=== PATIENT | male | born 1935 | race Caucasian/White ===

== ENCOUNTER 2018-06-02 20:21 | Inpatient (IN) | payer MEDICARE ==
[2018-06-02] MEDS ORDERED: NS 0.9% 1000 ML* 1,000 ML IV ONE (20:32)
--- NOTE | 2018-06-02 20:34 | ED ---
Neurological HPI - HPI Summary HPI Summary: This is johnnie Mejias documenting for attending Stan Frias MD. KERRY DOWLING CALLED AT 2030. Called [facility] for tele stroke at 2031. This patient is an 82 year old M BIBA to ED with a chief complaint of stroke since 1800 today. His daughter called the ambulance. The patient was sitting on the porch during onset. and daughter report they looked at him and he seemed out of touch. His R jaw and R eye were drooping. The patient tried to stand up but was unable to. reports he had no strength in R arm and R leg. They then sat him down and said he had slurred speech. They were able to walk him to the bathroom with their help. Usually, the patient can ambulate without a walker or any help. Daughter reports from 1799 to now, only his face has improved. In the room, his reports his face looks normal now. The patient rates the pain 0/10 in severity. Symptoms aggravated by nothing. Symptoms alleviated by nothing. The patient is retired. 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, Still Present Timing: Sudden Onset Current Severity: None Neurological Deficit Location: Facial - R jaw, R eye, and slurred speech, RUE, RLE Pain Intensity: 0 Pain Scale Used: 0-10 Numeric Aggravating: Nothing Alleviating: Nothing Associated Signs and Symptoms: Positive: Weakness - in R arm and R leg; facial droop on R eye, slurred speech - Allergy/Home Medications Allergies/Adverse Reactions: Allergies Allergy/AdvReac Type Severity Reaction Status Date / Time Penicillins Allergy Unknown Verified 06/02/18 20:44 Reaction Details Home Medications: Home Medications Acetaminophen [Acetaminophen Extra Strength] 1,000 mg PO Q6HR PRN 06/02/18 [ History Confirmed 06/02/18] Aspirin EC TAB* [Ecotrin EC Low Dose 81 MG*] 81 mg PO DAILY 06/02/18 [History Confirmed 06/02/18] Carvedilol TAB* [Coreg TAB*] 6.25 mg PO BID 06/02/18 [History Confirmed 06/02/18 ] Cholecalciferol TAB* [Vitamin D TAB*] 1,000 unit PO DAILY 06/02/18 [History Confirmed 06/02/18] Cyanocobalamin INJ * [Vitamin B12 INJ *] 1,000 mcg IM .EVERY OTHER MONTH [History Confirmed 06/02/18] Gabapentin CAP(*) [Neurontin 300 CAP(*)] 300 mg PO BEDTIME 06/02/18 [History Confirmed 06/02/18] Glucosamine Sulfate Dipot Chlr [Glucosamine] 1,500 mg PO DAILY 06/02/18 [ History Confirmed 06/02/18] Losartan TAB* [Cozaar TAB*] 100 mg PO DAILY 06/02/18 [History Confirmed 06/02/18 ] Lutein 20 mg PO DAILY 06/02/18 [History Confirmed 06/02/18] Kinsey-3 Fatty Acids [Kinsey-3] 1,000 mg PO DAILY 06/02/18 [History Confirmed ] traMADol TAB* [Ultram*] 50 mg PO Q6HR PRN 06/02/18 [History Confirmed 06/02/18] PMH/Surg Hx/FS Hx/Imm Hx Endocrine/Hematology History: Denies: Hx Diabetes Cardiovascular History: Reports: Hx Hypertension, Other Cardiovascular Problems/ Disorders - heart valve - Family History Known Family History: Positive: Cardiac Disease, Hypertension - Social History Alcohol Use: Occasionally Substance Use Type: Reports: None Smoking Status (MU): Former Smoker Review of Systems Negative: Fever Neurological: Other - R jaw and R eye droop; patient seemed out of touch; currently his face has improved according to Positive: Weakness - in R arm and R leg, Slurred Speech All Other Systems Reviewed And Are Negative: Yes Physical Exam - Summary Physical Exam Summary: VITAL SIGNS: Reviewed. GENERAL: Patient is a well-developed and nourished MALE who is lying comfortable in the stretcher. Patient is not in any acute respiratory distress. HEAD AND FACE: No signs of trauma. No ecchymosis, hematomas or skull depressions. No sinus tenderness. EYES: PERRLA, EOMI x 2, No injected conjunctiva, no nystagmus. EARS: Hearing grossly intact. Ear canals and tympanic membranes are within normal limits. MOUTH: Oropharynx within normal limits. NECK: Supple, trachea is midline, no adenopathy, no JVD, no carotid bruit, no c- spine tenderness, neck with full ROM. CHEST: Symmetric, no tenderness at palpation LUNGS: Clear to auscultation bilaterally. No wheezing or crackles. CVS: Regular rate and rhythm, S1 and S2 present, no murmurs or gallops appreciated. ABDOMEN: Soft, non-tender. No signs of distention. No rebound no guarding, and no masses palpated. Bowel sounds are normal. EXTREMITIES: FROM in all major joints, no edema, no cyanosis or clubbing. NEURO: Alert and oriented x 3. According to family and EMS, the patient was having R facial droop at home and in the ambulance. Improved now and resolved by the time he arrived to the ED. SKIN: Dry and warm Triage Information Reviewed: Yes Vital Signs On Initial Exam: Initial Vitals Resp BP 27 130/83 06/02/18 20:25 06/02/18 20:25 Vital Signs Reviewed: Yes Diagnostics - Laboratory Result Diagrams: 06/02/18 20:43 06/02/18 20:43 Lab Statement: Any lab studies that have been ordered have been reviewed, and results considered in the medical decision making process. - Radiology CXR Radiology Interpretation Completed By: ED Physician - No acute processes. Pending radiologist official interpretation. - CT Brain CT CT Interpretation Completed By: Radiologist - 1. No acute intracranial abnormality. ASPECT = 10 2. Mild chronic small vessel ischemic disease. ED physician has reviewed this radiology report. - EKG 2042 Cardiac Rate: NL - 84 BPM EKG Rhythm: Sinus Rhythm EKG Interpretation: first degree aV block, PVCs NIH Scale - NIH Scale Level of Consciousness: Alert/Keenly Responsive Ask Patient the Month and His/Her Age: Both Correct Ask Pt to Open/Close Eyes and Acting Teacher/Release Non-Paretic Hand: Both Correctly Best Gaze (Only Horizontal Eye Movement): Normal Visual Field Testing: No Visual Loss Facial Paresis-Pt to Smile & Close Eyes or Grimace Symmetry: Normal/Symmetrical Motor Function - Right Arm: Drifts LT 10 seconds Motor Function - Left Arm: No Drift-Holds 10 Seconds Motor Function - Right Leg: No Drift-Holds 10 Seconds Motor Function - Left Leg: No Drift-Holds 10 Seconds Limb Ataxia-Must be out of Proportion to Weakness Present: Absent Sensory (Use Pinprick to Test Arms/Legs/Trunk/Face): Normal Best Language (Describe Picture, Name Items): Some Loss Dysarthria (Read Several Words): Slurs Some Words Extinction and Inattention: No Abnormality Total Score: 3 NIH Stroke Scale Comment: Patient was unable to stand up even with assistance. Re-Evaluation - Re-Evaluation First Eval Re-Evaluation Time: 11:02 Comment: Discussed with the patient and his family about plan for further workup and about consult with [facility]. Course/Dx - Course Assessment/Plan: This patient is an 82 yo with PHx of HTN. She was brought to the ED by EMS. According to family, the patient developed R arm weakness, facial droop, and slurred speech. On exam, she had dysarthria, aphasia, RUE drift, and he was not able to ambulate. I consulted Dr. Curry at [facility] who recommended TPA. TPA was received in the ED. The patient was admitted to the ICU by Dr. Carrillo with dx of acute CVA. - Differential Dx Differential Diagnoses Neuro: Positive: Other - acute CVA - Diagnoses Provider Diagnoses: Acute CVA (cerebrovascular accident) - Physician Notifications Time Discussed With Above Provider: 20:55 Instructed by Provider To: Other - Consulted [facility] at 2054 to discuss the patient's case. Consulted Dr. Curry (stroke doctor) at [facility] at 2107 who recommended to get a TPA. TPA was ordered at 2109. Consulted Dr. Carrillo at 2131 who accepted the patient for admission. - Critical Care Time Critical Care Time: 30-74 min - 45 minutes Discharge - Sign-Out/Discharge Documenting (check all that apply): Patient Departure - Discharge Plan Condition: Stable Disposition: [facility]MITTED TO [facility]
[2018-06-02 20:54] LABS: ABS Basophils 0.1 10^3/ul (0-0.2); ABS Eosinophils 0.1 10^3/ul (0-0.6); ABS Lymphocytes 1.7 10^3/ul (1.0-4.8); ABS Monocytes 1.2 10^3/ul (0-0.8); ABS Nucleated RBC 0 10^3/ul; Hematocrit 37 % (42-52); Hemoglobin 12.8 g/dl (14.0-18.0); Lymphocyte % 14.4 % (25-47); Mean Corpuscular HGB Conc 34 g/dl (31-36); Mean Corpuscular Hemoglobin 32 pg (27-31); Mean Corpuscular Volume 93 fL (80-94); Mean Platelet Volume 6.9 um3 (7.4-10.4); Nucleated Red Blood Cells % 0; Platelet Count 190 10^3/ul (150-450); Red Blood Count 4.02 10^6/ul (4.00-5.40); Red Cell Distribution Width 13 % (10.5-15); White Blood Count 12.1 10^3/ul (3.5-10.8)
[2018-06-02 21:03] LABS: INR 1.02 (0.77-1.02)
[2018-06-02] MEDS ORDERED: ALTEPLASE IV ONE (21:08)
[2018-06-02] MEDS ORDERED: Alteplase* 100 MG in PREMIX* 100 ML IV ONE (21:08)
[2018-06-02] MEDS ORDERED: Alteplase* 100 MG VIAL ONE (21:10)
[2018-06-02 21:11] LABS: EGFR Non-African American 37.9 (>60)
[2018-06-02] MEDS ORDERED: Iodixanol* (CONTRAST) 320 MG/ML 100 ML SDV IV ONE (21:41)
[2018-06-02] MEDS ORDERED: Ondansetron INJ* 2 MG/ML VIAL IV PRN (23:25)
[2018-06-03 00:59] LABS: Urine Appearance Cloudy; Urine Blood 1+ (Negative); Urine Color Yellow; Urine Ketones Trace (Negative); Urine Protein 1+(30 mg/dL) (Negative); Urine Red Blood Cell 1+(3-5/hpf) (Absent); Urine Specific Gravity 1.034 (1.010-1.030); Urine Urobilinogen Negative (Negative); Urine White Blood Cell Trace(0-5/hpf) (Absent)
[2018-06-03] MEDS: cefTRIAXone VIAL(*) 1,000 MG in NS 0.9% 50 ML* 50 ML IVPB SCH (01:53)
--- NOTE | 2018-06-03 05:19 | HP ---
CC: Dr. Krishnamurthy, [place], phone number [phone], FAX [phone]; Dr. Altamirano; Dr. Ortega, phone number [phone], FAX [phone] * HISTORY AND PHYSICAL: DATE OF ADMISSION: 06/02/18 PRIMARY CARE PROVIDER: Dr. Krishnamurthy from [place], phone number is [phone] ATTENDING PHYSICIAN WHILE IN THE HOSPITAL: Dr. Geovany Carrillo * (report dictated by Rhina Taylor NP). CONSULTING NEUROLOGIST: Dr. Altamirano. CHIEF COMPLAINT: 1. Facial droop. 2. Right-sided weakness. 3. Difficulty with speech. HISTORY OF PRESENT ILLNESS: Mr. Fletcher is an 82-year-old male patient. He has a history of hypertension, hyperlipidemia, and valvular heart disease. He has had a bovine aortic valve replacement done about 3 years ago. He is presenting today. Around 1800, he developed trouble with speech. His noted that he could not stand on his right side, it was weak at the right arm and right leg. He was noted to have a facial droop and trouble with speaking. The patient's was concerned. They called 911 and brought the patient immediately. While he was here, he was still having difficulty with his speech and the weakness to right side. He underwent telestroke. TPA was advised and this was given. The patient had an improvement with this, but there was concern for possible stroke. We were asked to evaluate for admission. The patient does state that the last couple of nights he has had episodes of having some chills, but no headache, no neck pain. No fevers reported. No chest pain or shortness of breath. No abdominal discomfort. Denies having any palpitations, any nausea or vomiting. He does state that he had significant weakness on the right side and right-sided facial droop and he had difficulty with his speech. Because of this, we were asked to evaluate for admission. PAST MEDICAL HISTORY: Significant for: 1. Hypertension. 2. Hyperlipidemia. 3. Aortic valve disease. PAST SURGICAL HISTORY: 1. He has had an aortic valve replacement, which was bovine. 2. He has had a hernia repair. HOME MEDICATIONS: According to the patient's list include: 1. Glucosamine 1500 mg p.o. daily. 2. Harrison-3 1000 mg p.o. daily. 3. Lutein 20 mg p.o. daily 4. Tylenol Extra Strength 1000 mg every 6 hours as needed. 5. Vitamin D 1000 units p.o. daily. 6. Aspirin 81 mg daily. 7. Tramadol 50 mg every 6 hours as needed. 8. Gabapentin 300 mg daily. 9. B12 1000 mcg IM every month. 10. Cozaar 100 mg daily. 11. Carvedilol 6.25 mg p.o. b.i.d. ALLERGIES TO MEDICATIONS: Include PENICILLIN and LISINOPRIL. FAMILY HISTORY: His mother had a history of CVA. Father had a history of IN. SOCIAL HISTORY: He is a former smoker. He does not drink alcohol. Surrogate decision maker is his . REVIEW OF SYSTEMS: There is no documented fever. He is denying having any significant weight change. There is no double vision. He denies having any ear discharge. There is no rhinorrhea. There was no sore throat. No thyroid enlargement. Denied having any chest pain. There was no orthopnea. There was no nocturnal dyspnea. There was again no abdominal pain. No nausea, no vomiting. No dysuria, no frequency. No seizure, no loss of consciousness. No pruritus and no skin ulcerations. Review of 14 systems completed, all others negative. PHYSICAL EXAMINATION GENERAL: At this time, Mr. Fletcher is an 82-year-old male patient; he is sitting in the ED stretcher. He does not appear to be in any acute distress. VITAL SIGNS: Blood pressure 132/66, pulse 92, respirations 20, O2 sat 92%, temperature 99.6. HEENT: Head is atraumatic and normocephalic. Eyes: EOMs are intact . Sclerae anicteric and not pale. Throat: Oral mucosa appears to be moist. No oropharyngeal erythema. NECK: Supple. LUNGS: Clear to auscultation bilaterally. No wheezes, rales, or rhonchi. HEART: Sounds S1, S2. He had a regular rate and rhythm. No murmurs, rubs, or gallops. ABDOMEN: Soft, it was flat, nontender. Bowel sounds were present. EXTREMITIES: Pulses were 2+ throughout. He is moving all 4 extremities with 5/ 5 strength. NEUROLOGICAL: He is awake, he is alert. He is having some expressive aphasia. He is able to get his words out, but the speech is slower per the family than his baseline. He has got a little bit of facial droop on the right side. He has got 5/5 strength in the right upper and right lower extremity. No pronator drift. [id number]-[id number] intact bilaterally. Soya-iw-[id number] intact bilaterally. No other gross focal deficits were seen. SKIN: Grossly intact. LABORATORY DATA/DIAGNOSTIC STUDIES: Labs are revealing a WBC of 12.1, RBC of 4.02, hemoglobin of 12.8, hematocrit of 37, and platelet count of 190. His INR was 1.02, PTT of 28.0. Sodium 136, potassium of 3.6, chloride of 108, bicarb 20 , BUN 23, creatinine 1.74, glucose 108, lactate 0.7, calcium 9.4. Total bili 0.7, AST 15, ALT 10, alk phos 51. Troponin 0.07, CRP of 46. His LDL was 86, albumin 3.9. Urine is pending. He did have a head CTA, which impression showed no critical stenosis in the carotid arteries and a normal CTA of the head. Brain CT was obtained today as well, impression on the brain CT, which showed no acute intracranial abnormality, ASPECTS score was a 10, mild chronic small vessel ischemic change. Chest x-ray, I reviewed it today, I do not see any acute infiltrates or pleural effusions, looks like a benign x-ray. He does have sternal wires. He did have an EKG obtained today as well. I do not have a previous for comparison unfortunately. Today's EKG is showing a normal sinus rhythm. He does have frequent PVCs. He has a first-degree AV block. Old medical records again are not available because he is visiting from [place]. ASSESSMENT AND PLAN: Mr. Fletcher is an 82-year-old male patient coming into the ED today with complaints of a weakness to his right side, facial drooping and difficulty with speech. Evaluation today was concerned for cerebrovascular accident. He received TPA. He will be admitted under inpatient status for: 1. Cerebrovascular accident. At this point, he did receive TPA. He will be placed in the ICU with frequent neuro checks. I did place a call to Dr. Altamirano. I am going to get a CT of the brain, 24 hours to make sure there has been no bleeding. We will get an MRI of the brain as well. We will also get an echo with bubble study. We will place the patient on telemetry. I am holding any antiplatelet therapy until after 24 hours. We will get Neurology's input, but most likely he will need to be placed on Plavix. I am checking lipid panel in the morning and an A1c and we will get frequent neuro checks. I have ordered speech evaluation. He will be on bed rest. When he comes off bed rest, we will get PT and OT evaluations with head of the bed at 30 degrees or less and we will allow for permissive hypertension. We will treat for systolics greater than 185 or diastolics greater than 100. 2. Hypertension. Holding medications in the setting of acute cerebrovascular accident. We will treat as needed. 3. History of valvular heart disease. We are getting an echo. 4. History of hyperlipidemia. We will get a lipid panel. Continue with his medications as prescribed. 5. DVT prophylaxis. I have ordered SCDs. 6. Code status. Full code. 7. Fluids, electrolytes, and nutrition. He will be n.p.o. for the first 24 hours. TIME SPENT: Time spent on the admission was 60 minutes, greater than half the time was spent [id number] with the patient obtaining my history and physical, other half of the time was spent going over the plan of care with the patient and implementing the plan of care. I did discuss the plan of care with my attending, Dr. Carrillo, he is in agreement. RHINA TAYLOR NP [id number]/[facility] #: [id number] EFRAIN
[2018-06-03] MEDS ORDERED: NS 0.9% 1000 ML* 1,000 ML IV ONE (06:01)
[2018-06-03 06:15] LABS: ABS Basophils 0.1 10^3/ul (0-0.2); ABS Eosinophils 0.2 10^3/ul (0-0.6); ABS Lymphocytes 1.9 10^3/ul (1.0-4.8); ABS Monocytes 1.2 10^3/ul (0-0.8); ABS Neutrophils 6.3 10^3/ul (1.5-7.7); ABS Nucleated RBC 0 10^3/ul; Eosinophil % 1.7 % (0-6); Hematocrit 34 % (42-52); Lymphocyte % 19.8 % (25-47); Mean Corpuscular HGB Conc 35 g/dl (31-36); Mean Corpuscular Hemoglobin 33 pg (27-31); Mean Corpuscular Volume 92 fL (80-94); Mean Platelet Volume 7.2 um3 (7.4-10.4); Nucleated Red Blood Cells % 0; Platelet Count 175 10^3/ul (150-450); Red Blood Count 3.67 10^6/ul (4.00-5.40); Red Cell Distribution Width 13 % (10.5-15); White Blood Count 9.6 10^3/ul (3.5-10.8)
[2018-06-03 06:19] LABS: INR 1.15 (0.77-1.02)
[2018-06-03 06:35] LABS: EGFR Non-African American 40.6 (>60)
--- NOTE | 2018-06-03 07:47 | RAD ---
HISTORY: Neurological Changes/Code Louis COMPARISONS: None VIEWS: 1: frontal portable view of the chest at 8:55 PM FINDINGS: LINES AND TUBES: None. CARDIOMEDIASTINAL SILHOUETTE: The cardiomediastinal silhouette is normal for portable technique. PLEURA: The costophrenic angles are sharp. No pleural abnormalities are noted. LUNG PARENCHYMA: The lungs are clear. ABDOMEN: The upper abdomen is clear. There is no subphrenic gas. BONES AND SOFT TISSUES: The patient is status post median sternotomy. IMPRESSION: NO ACTIVE CARDIOPULMONARY DISEASE. R0
--- NOTE | 2018-06-03 08:03 | RAD ---
HISTORY: Neurological changes/code edouard COMPARISONS: None TECHNIQUE: Multiple contiguous axial CT scans were obtained of the head without intravenous contrast. FINDINGS: HEMORRHAGE/INFARCT: There is no hemorrhage or acute infarct. MASSES/SHIFT: There is no mass or shift. EXTRA-AXIAL SPACES: There are no extra-axial fluid collections. SULCI AND VENTRICLES: The sulci and ventricles are normal in size and position for the patient's stated age. CEREBRUM: There is minimal hypoattenuation of the periventricular and subcortical white matter. BRAINSTEM: There are no focal parenchymal abnormalities. CEREBELLUM: There are no focal parenchymal abnormalities. VESSELS: The vessels are grossly normal. PARANASAL SINUSES: The paranasal sinuses are clear. ORBITS: The orbits are unremarkable. BONES AND SOFT TISSUE: No bone or soft tissue abnormalities are noted. OTHER: None IMPRESSION: NO ACUTE INTRACRANIAL PATHOLOGY. FINDINGS ARE REPORTED IN WRITING AT 8:[address] BASSETT. THERE IS NO RECORD OF VERBAL COMMUNICATION ON THE CURRENT EXAMINATION. R0
--- NOTE | 2018-06-03 08:13 | RAD ---
HISTORY: CVA COMPARISONS: None TECHNIQUE: Multiple contiguous axial CT scans were obtained of the head and neck after the administration of nonionic intravenous contrast timed to the systemic arterial phase of contrast enhancement. Coronal and sagittal multiplanar reformations are submitted for review. Multiple 3-D maximum intensity projection reconstructions are also submitted for review. FINDINGS: The study is limited by patient motion artifact. CTA NECK: AORTIC ARCH: There is calcific atherosclerotic disease of the aortic arch, without ostial or proximal stenosis of the cephalic great vessels. There is a bovine configuration with the left common carotid artery originating from the brachiocephalic trunk.. RIGHT VERTEBRAL ARTERY: The right vertebral artery is patent along its course, without stenosis. LEFT VERTEBRAL ARTERY: The left vertebral artery is patent along its course, without stenosis. DOMINANCE: The left vertebral artery is dominant. RIGHT COMMON CAROTID ARTERY: The right common carotid artery is patent. The right carotid bifurcation occurs at C5-C6 RIGHT INTERNAL CAROTID ARTERY: There is atheromatous disease of the right carotid bifurcation, without right internal carotid artery stenosis by NASCET criteria. RIGHT EXTERNAL CAROTID ARTERY: The right external carotid artery is unremarkable. LEFT COMMON CAROTID ARTERY: The left common carotid artery is patent. The left carotid bifurcation occurs at C5-C6 LEFT INTERNAL CAROTID ARTERY: There is atheromatous disease of the left carotid bifurcation, without left internal carotid artery stenosis by NASCET criteria. LEFT EXTERNAL CAROTID ARTERY: The left external carotid artery is unremarkable. VENOUS CIRCULATION: The venous system is unremarkable. SALIVARY GLANDS: The parotid glands, submandibular glands, sublingual glands are normal. NASAL CAVITY/NASOPHARYNX: The nasal cavity and nasopharynx are normal. ORAL CAVITY/OROPHARYNX: The oral cavity is obscured by streak artifact from dental amalgam. The visualized oral cavity and oropharynx are unremarkable. LARYNGEAL APPARATUS/HYPOPHARYNX: The laryngeal apparatus and hypopharynx are normal. UPPER AIRWAY/UPPER ESOPHAGUS: The visualized upper airway and esophagus are normal. LUNG APICES: The lung apices are clear. THYROID GLAND: The thyroid gland is normal. LYMPH NODES: There is no lymphadenopathy by size criteria. BONES AND SOFT TISSUES: Degenerative changes are noted of the spine. There is fusion along the upper cervical spine. CTA HEAD: INTRACRANIAL CIRCULATION: There is no aneurysm, vascular malformation, occlusion, or stenosis of the visualized intracranial circulation. The anterior communicating artery complex is clear. Bilateral posterior communicating arteries are identified. VENOUS CIRCULATION: The venous system is unremarkable. PERFUSION: There is no obvious parenchymal perfusion deficit. HEMORRHAGE/INFARCT: There is no hemorrhage or acute infarct. MASSES/SHIFT: There is no mass or shift. EXTRA-AXIAL SPACES: There are no extra-axial fluid collections. SULCI AND VENTRICLES: The sulci and ventricles are normal in size and position for the patient's stated age. CEREBRUM: There are no focal parenchymal abnormalities. BRAINSTEM: There are no focal parenchymal abnormalities. CEREBELLUM: There are no focal parenchymal abnormalities. PARANASAL SINUSES: The paranasal sinuses are clear. ORBITS: The orbits are unremarkable. BONES AND SOFT TISSUE: No bone or soft tissue abnormalities are noted. OTHER: There is no abnormal enhancement. IMPRESSION: 1. ATHEROSCLEROSIS. 2. NO INTERNAL CAROTID ARTERY STENOSIS BY NASCET CRITERIA. 3. NO ANEURYSM, VASCULAR MALFORMATION, OCCLUSION, OR STENOSIS OF THE VISUALIZED INTRACRANIAL CIRCULATION.. CPT II Codes: 3100F
--- NOTE | 2018-06-03 11:17 | CONSULT ---
Consult Consult: Neurology consult dictated this morning before MRI brain results. I reviewed the MRI brain. The patient has acute multifocal infarction involving the left cerebellum and the left caudate and basal ganglia regions. This finding suggests a cardioembolic mechanism rather than intracranial atherosclerotic disease. He will require a AFIA if the TTE is negative. If all testing is negative, he would be a good candidate for terminal make up operator heart monitoring (e.g., loop recorder). 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 The CT head without contrast tonight will be important to evaluate if he can be placed back on antithrombotic therapy. I will continue to follow. Lisa Altamirano MD
--- NOTE | 2018-06-03 11:37 | RAD ---
HISTORY: cva, weakness COMPARISONS: Head CT dated June 02, 2018 TECHNIQUE: The following sequences were obtained of the head: Sagittal T1-weighted images, axial T2-weighted images, axial FLAIR images, axial susceptibility weighted images, axial T1-weighted images. Additionally, axial diffusion-weighted images were obtained with calculated apparent diffusion coefficients. FINDINGS: HEMORRHAGE/INFARCT: There is restricted diffusion within the left anterior striatum including the caudate head consistent with subacute infarct. There is susceptibility artifact suggestive of petechial hemorrhage without masoud parenchymal hematoma. Additionally, there is restricted diffusion within the left inferior cerebellum. Elsewhere, there is no hemorrhage or acute infarct. MASSES/SHIFT: There is no mass or shift. EXTRA-AXIAL SPACES/MENINGES: There are no extra-axial fluid collections. SULCI AND VENTRICLES: The sulci and ventricles are normal in size and position for the patient's stated age. CEREBRUM: As noted above, there is elevated T2/FLAIR signal with restricted diffusion of the right caudate head and anterior lentiform nuclei, with susceptibility artifact suggestive of petechial hemorrhage. BRAINSTEM: There are no focal parenchymal abnormalities. CEREBELLUM: As noted above, there is elevated T2/flair signal with restricted diffusion within the left inferior cerebellum consistent with subacute nonhemorrhagic infarct. The cerebellar tonsils are normal in size and position. SELLA: The sella is normal. PINEAL: The pineal region is clear. CP ANGLE/TEMPORAL BONES: The labyrinthine structures are grossly normal. VESSELS: Normal flow-voids are noted within the visualized vertebral vasculature. DIFFUSION ABNORMALITIES: As noted above, there is elevated diffusion signal with restricted diffusion and the left caudate head and anterior lentiform nuclei. Additionally, there is restricted diffusion within the left inferior cerebellum. PARANASAL SINUSES/MASTOIDS: There is mucosal thickening of ethmoid air cells. ORBITS: The orbits are unremarkable. BONES AND SOFT TISSUE: No bone or soft tissue abnormalities are noted. OTHER: None IMPRESSION: 1. RESTRICTED DIFFUSION AND ELEVATED T2/FLAIR SIGNAL WITHIN THE LEFT ANTERIOR BASAL GANGLIA. THERE IS SUSCEPTIBILITY ARTIFACT SUGGESTIVE OF PETECHIAL HEMORRHAGE, WITHOUT MASOUD PARENCHYMAL HEMATOMA. 2. THERE IS A SECOND FOCUS OF NONHEMORRHAGIC SUBACUTE INFARCT WITHIN THE LEFT INFERIOR CEREBELLUM. 3. THE MULTIPLE VASCULAR TERRITORIES SUGGEST EMBOLIC PHENOMENON..
[2018-06-03] MEDS ORDERED: Magnesium Sulfate 2 GM IV* 2 GM/50 ML BAG IVPB ONE (12:30)
[2018-06-03] MEDS: KCL 20 MEQ/100 ML IVPREMIX* 20 MEQ/100 ML BAG IV SCH ×2 (12:39→14:59)
[2018-06-03] MEDS ORDERED: Magnesium Sulfate IV* 2 GM in NS 0.9% 100 ML* 100 ML IVPB ONE (13:00)
--- NOTE | 2018-06-03 13:12 | PN ---
Subjective Date of Service: 06/03/18 Interval History: HOSPITALIST PROGRESS NOTE Patient seen and examined at bedside. Care reviewed and d/w Ellen Rushing RN. He feels well today. States his right sided weakness is resolved and speech is much improved. Denies JANSEN, N/V, chest pain or palpitations. Family History: Unchanged from Admission Social History: Unchanged from Admission Past Medical History: Unchanged from Admission Objective Active Medications: Acetaminophen (Tylenol Tab*) 650 mg PO Q6H PRN PRN Reason: FEVER/PAIN Ceftriaxone Sodium 1,000 mg/ (Sodium Chloride) 50 mls @ 200 mls/hr IVPB Q24H YANDY Last Admin: 06/03/18 01:53 Dose: 200 mls/hr Potassium Chloride (Potassium Chloride 20 Meq/100 Ml Ivpremix*) 20 meq in 100 mls @ 50 mls/hr IV Q2H YANDY Stop: 06/03/18 16:59 Last Admin: 06/03/18 12:39 Dose: 50 mls/hr Magnesium Sulfate 2 gm/ Sodium (Chloride) 104 mls @ 104 mls/hr IVPB ONCE ONE Stop: 06/03/18 13:59 Ondansetron HCl (Zofran Inj*) 4 mg IV Q6H PRN PRN Reason: NAUSEA Vital Signs - 8 hr 06/03/18 06/03/18 06/03/18 05:25 05:55 06:00 Temperature 98.9 F 99 F Pulse Rate 76 Respiratory 22 Rate Blood Pressure (mmHg) O2 Sat by Pulse 95 Oximetry 06/03/18 06/03/18 06/03/18 06:25 07:00 07:01 Temperature 98.7 F Pulse Rate 70 75 Respiratory 20 21 Rate Blood Pressure 137/59 (mmHg) O2 Sat by Pulse 96 95 Oximetry 06/03/18 06/03/18 06/03/18 08:00 08:01 09:00 Temperature 99.5 F Pulse Rate 83 79 70 Respiratory 24 24 20 Rate Blood Pressure 156/76 (mmHg) O2 Sat by Pulse 95 94 96 Oximetry Oxygen Devices in Use Now: None Appearance: Pleasant elderly gentleman lying in bed in NAD. Eyes: No Scleral Icterus Ears/Nose/Mouth/Throat: Mucous Membranes Moist Neck: Trachea Midline Respiratory: Symmetrical Chest Expansion and Respiratory Effort, Clear to Auscultation Cardiovascular: RRR - Normal S1 and S2 Abdominal: NL Sounds; No Tenderness; No Distention Neurological: Alert and Oriented x 3, NL Muscle Strength and Tone Result Diagrams: 06/03/18 05:35 06/03/18 05:35 Assess/Plan/Problems-Billing Assessment: Mr Fletcher is an 82yo M with PMH of HTN, HLD, aortic valve disease, who presented to ED with c/o slurred speech, right hemiparesis, found to have an ischemic CVA. - Patient Problems (1) Ischemic cerebrovascular accident (CVA) Comment: - Initial CT brain was negative and patient received tPA last night. - Symptoms are much improved today. - MRI brain showed multiple territories CVA including left basal ganglia and left inferior cerebellum, suggestive of embolic etiology. - If transthoracic echo is negative, will need transesophageal. - No antiplatelets for 24h after tPA. - Left caudate also shows some petechial hemorrhage - repeat CT brain tonight. - Continue to monitor in ICU, neurocheks. (2) HTN (hypertension) Comment: - Permissive HTN for now. - May resume Carvedilol tomorrow. Continue to hold ARB. (3) Elevated troponin Comment: - Denies chest pain, EKG shows no ischemic changes (only PVCs), but troponin continues to trend up. - Follow echo for wall motion abnormalities. - Trend troponin until peak. - Cardiology consult requested. (4) HLD (hyperlipidemia) Comment: - LDL is 78. As this appears to be an embolic CVA, will d/w Neurology indication for statin. (5) DVT prophylaxis Comment: - Pharmacological prophylaxis contraindicated in the setting of post- tPA and possible petechial hemorrhage. - SCDs. (6) Full code status Status and Disposition: Inpatient. Continue to monitor in ICU.
--- NOTE | 2018-06-03 13:33 | ECHO ---
Patient: NATALIE MCMILLAN [facility] Rec#: [id number] : 1935 Date: 06/03/2018 Age: 82y Weight: kg / NaN lbs Sex: M Room#: ICU-1 Admit Date#: 06/02/2018 Type: Inpatient Referring: Connre Taylor NP Reading: May Montoya MD Food Service Ambassador: Vika Chery [facility] Indication: CVA BP: 97/49 HR: 74 Rhythm: NSR with PVCs Findings History: HTN,HLD,s/p Bovine Aortic valve replacement 2014, former smoker. Technical Comments: The study quality is good. Completed at 0832. Left Ventricle: Mild concentric left ventricular hypertrophy is observed. Global left ventricular wall motion and contractility are within normal limits. The estimated ejection fraction is 55-60%. Post surgical hypokinesis of the interventricular septum is observed consistent with valve replacement. There is no consistent Doppler evidence of clinically significant diastolic dysfunction. Left Atrium: The left atrial chamber size is normal. Right Ventricle: The right ventricular cavity size is normal. The right ventricular global systolic function is normal. The septum has abnormal paradoxical motion consistent with post-operative pressure. Right Atrium: The right atrial cavity size is normal. There is no patent foramen ovale visualized. There is no evidence of patent foramen ovale shunting. A patent foramen ovale is not demonstrated with color Doppler and agitated contrast. Aortic Valve: The mean gradient of the aortic valve is 9.01 mmHg. The highest aortic valve velocity was obtained with the standard probe from the A5C view. A bovine bio-prosthetic aortic valve is present. The prosthetic aortic valve leaflets are normal. The bio-prosthetic aortic valve appears to be functioning normally. Mitral Valve: The mitral valve leaflets are mildly thickened. There is mild mitral regurgitation. There is no evidence of mitral stenosis. Tricuspid Valve: The tricuspid valve leaflets are normal. There is mild tricuspid regurgitation. The right ventricular systolic pressure is estimated at 40 mmHg. There is evidence of mild pulmonary hypertension. There is no tricuspid stenosis. Pulmonic Valve: The pulmonic valve appears normal. There is mild pulmonic regurgitation. There is no pulmonic stenosis. Pericardium: A pericardial fat pad is visualized. Aorta: There is mild dilatation of the ascending aorta. There is no dilatation of the aortic arch. There is mild dilatation of the aortic root. Pulmonary Artery: The main pulmonary artery appears normal. Venous: The inferior vena cava appears normal in size. There is a greater than 50% respiratory change in the inferior vena cava dimension. Contrast: Normal saline was used as contrast for the bubble study. Intravenous contrast was used to help determine presence of intracardiac shunting. Conclusions Mild concentric left ventricular hypertrophy is observed. Global left ventricular wall motion and contractility are within normal limits, mild septal dysychrony. The estimated ejection fraction is 55-60%. The right ventricular global systolic function is normal. No evidence of patent foramen ovale demonstrated with color Doppler and agitated contrast. The bovine bio-prosthetic aortic valve appears to be functioning normally: mean gradient 9 mmHg, peak AV velocity 2.1 m/s, DI 0.56, leaflets appear thin and mobile. There is mild mitral regurgitation. There is mild tricuspid regurgitation. There is evidence of mild pulmonary hypertension. The right ventricular systolic pressure is estimated at 40 mmHg. There is mild dilatation of the ascending aorta: 3.6 cm. Prior echo not available for comparison. Measurements Name Value Normal Range RVIDd (AP) 2D 1.9 cm (0.9 - 2.6) RVDdMajor (2D) 3.4 cm (2.2 - 4.4) RAd ISD 4CH 4.8 cm (3.4 - 4.9) RA (A4C)W 4.5 cm (2.9 - 4.6) IVSd (2D) 1.2 cm (0.6 - 1) LVPWd (2D) 1.1 cm (0.6 - 1) LVIDd (2D) 4.4 cm (3.6 - 5.4) LVIDs (2D) 2.6 cm - LV FS (2D) 40 % (25 - 45) Aortic Annulus 2 cm (1.4 - 2.6) Ao root diameter (2D) 3.7 cm (2.1 - 3.5) Ascending Ao 3.6 cm (2.1 - 3.4) Aortic arch 2.5 cm (1.8 - 3.4) Descending Ao 0.5 cm - LA dimension (AP) 2D 3.6 cm (2.3 - 3.8) LAd ISD 4CH 5.5 cm (2.9 - 5.3) LA ISD 4CH W 3.8 cm (2.5 - 4.5) Name Value Normal Range LA ESV SP 4CH (A/L) 61 ml - LA ESV SP 2CH (A/L) 65 ml - LA ESV BP (A/L) 64 ml - LA ESV BP (A/L) index 31.13 ml/m2 - LA ESV SP 4CH (MOD) 55 ml - LA ESV SP 2CH (MOD) 62 ml - Name Value Normal Range MV E-wave Vmax 1.2 m/sec - MV deceleration time 140 msec - MV A-wave Vmax 1.1 m/sec - MV E:A ratio 1.1 ratio - LV septal e' Vmax 0.06 m/sec - LV lateral e' Vmax 0.08 m/sec - LV E:e' septal ratio 20 ratio - LV E:e' lateral ratio 15 ratio - Name Value Normal Range AV Vmax 2.1 m/sec - AV VTI 45.2 cm - AV peak gradient 17.72 mmHg - AV mean gradient 9.01 mmHg - LVOT diameter 2 cm - LVOT Vmax 1 m/sec - LVOT VTI 25.7 cm - LVOT peak gradient 4.27 mmHg - LVOT mean gradient 2.22 mmHg - KEKE (continuity Vmax) 1.5 cm2 - KEKE (continuity VTI) 1.8 cm2 - Name Value Normal Range MR Vmax 6.6 m/sec - MR VTI 222 cm - Name Value Normal Range TR Vmax 3.1 m/sec - TR peak gradient 37 mmHg - RAP 3 mmHg - RVSP 40 mmHg - IVC diameter 1.8 cm - Name Value Normal Range PV Vmax 1.1 m/sec - PV peak gradient 4.51 mmHg -
--- NOTE | 2018-06-03 14:49 | CONS ---
CC: Conner Taylor NP; Dr. Stan Frias; Dr. Geovany Carrillo NEUROLOGY CONSULTATION REPORT: DATE OF CONSULT: 06/03/18 CONSULTING PROVIDER: Conner Taylor NP REASON FOR NEUROLOGICAL CONSULTATION: Acute right-sided weakness, status post IV t- PA. The history was obtained by the patient at bedside and by reviewing the electronic medical record. CHIEF COMPLAINT: "I guess I had a stroke." HISTORY OF PRESENT ILLNESS: Mr. 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 The patient was sitting with family members, specifically his son-in-law and daughter while having a martini. After his first drink, the patient then developed a weakness on the right side. His right arm began to feel tight and heavy. He was last known well at 5 p.m. The symptoms onset were at 6 p.m. The patient was rushed to the emergency department by EMS. He was evaluated by the [facility] teleneurology stroke service. He had a CT head without contrast completed on 06/02/18 that showed no acute intracranial abnormality. There is a hypodensity in the left cerebellar peduncle that appears to be old. He had a CTA head and neck that showed no large vessel occlusion or carotid artery disease. I do not have information or records from [facility] consultation. The patient had blood glucose check, which was 140. He was deemed a candidate for IV t-PA. His NIH stroke scale was reported to be 3 at 2030 yesterday. ED arrival was 2020. Katt edouard called 2030. CT completed 2034. A t-PA was administered at 2107. PAST MEDICAL HISTORY: Hypertension; dyslipidemia; aortic valve disease, status post aortic valve replacement 3 years ago; hernia surgery done in the past. MEDICATIONS: Home medications: 1. [place]-3 fatty acid 1000 mg by mouth daily. 2. Lutein 20 mg by mouth daily. 3. Acetaminophen 1000 mg by mouth every 6 hours as needed for pain. 4. Aspirin 81 mg daily. 5. Tramadol 50 mg every 6 hours as needed for pain. 6. Gabapentin 300 mg at bedtime. 7. Cyanocobalamin 1000 mcg intramuscular injection every other month. 8. Losartan 100 mg by mouth daily. 9. Carvedilol 6.25 mg by mouth twice daily. 10. Glucosamine sulfate 1500 mg by mouth daily. ALLERGIES: PENICILLIN. FAMILY HISTORY: Mother of a stroke. His father had a congestive heart disease. 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 He denied any tobacco use. He drinks 1 martini a day. REVIEW OF SYSTEMS: A 14-point review of systems was obtained and otherwise negative, except for what was mentioned in the HPI. PHYSICAL EXAM: Vitals: Temperature 99.5, pulse of 80, respiratory rate of 20, oxygen saturation 94, blood pressure 156/76. General: Well-nourished, well- developed man, in no acute distress. He is cooperative. Head is atraumatic, normocephalic without any obvious abnormality. Eyes: Conjunctivae/corneas are clear. No scleral icterus. Neck is supple and symmetrical with no carotid bruit. No lymphadenopathy. Lungs are clear to auscultation bilaterally, nonlabored breathing. Cardiovascular: Regular rate and rhythm. Normal S1, S2 with radial pulses are palpable. Extremities: Normal range without any cyanosis or edema. Skin: No skin lesions or lacerations. Psych: Affect is broad and normal mood. He is easy to establish rapport, although he has some degree of aphasia. Neurological Examination: Awake and alert, oriented to person, place, time, and general circumstances. He has no dysarthria, but does have expressive aphasia, which include deficits in fluency and mild deficits in repetition; however, he had no trouble with naming or expression and comprehension. Cranial Nerves: Normal confrontation bilaterally. Pupils are mid range and reactive to light, normal consensual response. Extraocular muscles are intact. He has no ptosis. There is no conjugate or asymmetrical nystagmus. Sensation is intact on the forehead, cheeks, and jaw region bilaterally. He has mild loss of the nasolabial fold on the right side, but no significant facial asymmetry. He is able to hear throughout the history process. Symmetrical palatal elevation. Normal strength against shoulder shrug resistance. Tongue is symmetrical and midline with no atrophy or fasciculation. Motor Examination: He has 5/5 in upper and lower extremities, except for 4/5 in shoulder abduction on the right. He has mild pronator drift on the right. Otherwise, no fasciculation and no tremors. Reflexes Right/Left : Brachioradialis 2/2, biceps 2/2, triceps 2/2, patella 2/1, ankle 2/1, plantar flexor/flexor. Sensation is intact to light tough throughout. He has normal vibration for age at the great toes lasting for about 7 seconds bilaterally. Normal proprioception at the great toes. Coordination: Normal [id number] and reduced rapid alternating movements on the right side. Gait and stations were assessed as the patient recently had received t-PA yesterday and is on bed rest for 24 hours. DIAGNOSTIC STUDIES/LAB DATA: WBC of 9.6, hemoglobin of 12.0, hematocrit of 34. ESR 40, INR of 1.15. Sodium 138, potassium 3.5, chloride 111, creatinine of 1.64, triglycerides 78, cholesterol 126, LDL of 78, HDL of 32. Urinalysis, no pyuria. Troponin has been slowly elevating from 0.07 to 0.13 to 0.32 and most recent 0.49. There has been no peak in troponin. 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 The patient was within the therapeutic window for IV t-PA and received IV t-PA within 4- 1/2-hour window and the patient was evaluated by Telestroke by the [facility] yesterday. He was admitted to the ICU for further monitoring. 1. Suspect acute left middle cerebral artery distal vascular territory ischemic infarction - the patient on examination has evidence of mild long tract pyramidal signs on the right upper extremity and expressive aphasia. I suspect the stroke to be located in the inferior frontal region on the left side. Mechanism of the stroke is likely either a distal emboli from proximal cardiac disease or distal atherosclerotic disease from his risk factors of age, hypertension, and dyslipidemia. He denied any headaches and has no evidence of hemorrhagic transformation on clinical examination. 2. Hypertension - allow permissive hypertension, but treat any systolic blood pressure over 180 mmHg. 3. Dyslipidemia - LDL is 78. He may benefit from low-dose statin therapy. 4. Elevated troponin I - there has been no peak in his troponin as of yet. The cause of the elevation of troponin I can be related to his kidney disease or the acute stroke. However, given his family history of cardiovascular disease, monitoring for acute coronary syndrome should take place; the patient currently is not complaining of any chest pain and he has no reported EKG changes. The team is planning on repeating the troponin until troponin peak is established. We will keep in mind that elevation in cardiac troponin in patients with acute stroke and no clinical evidence of acute coronary syndrome is a strong predictor of long-term cardiac disease outcomes. 5. Elevated C-reactive protein in the setting of acute stroke. PLAN: The patient is currently in ICU. He has a scheduled MRI of the brain without contrast to evaluate and confirm the cerebral infarction. He will need a 2D transthoracic echo. Continue telemetry. He does not need any carotid sonogram since the CTA head and neck was unremarkable. Please hold all antiplatelet and anticoagulation therapy until the repeat CT head after 24 hours is negative. At that time, if he has no evidence of hemorrhagic transformation, we can start dual antiplatelet therapy with aspirin 81 mg daily and Plavix 75 mg daily for 30 days. Again, this depends on the results of the CT head. If he has evidence of a large stroke on the MRI, we would consider again starting dual antiplatelet therapy and most likely start Plavix 75 mg daily. Please start atorvastatin 20 mg nightly. Consult PT/OT/ROLL BUILDER to evaluate and treat. Please do a bedside swallow evaluation. Secondary stroke prevention and stroke educations were completed with the patient at bedside. Do not place a urinary catheter unless there is evidence of urinary retention. VTE prophylaxis with SCDs until the repeat CT head is completed and shows no evidence of hemorrhage. He has no evidence of atrial fibrillation hence anticoagulation therapy is not indicated at this time. TIME SPENT: I spent time a total of 75 minutes of critical care time and greater than 50% was spent directly reviewing the medical chart, obtaining history, examining the patient, education, counseling, and discussing the treatment plan and prognosis with the patient and primary team. I informed the patient that patients who receive t-PA have higher chance of recovering back to baseline or at least establishing a functional independence at 3 months. He was encouraged. I will continue to follow. [id number]/[facility] #: [id number] EFRAIN
--- NOTE | 2018-06-03 17:54 | RAD ---
INDICATION: CVA rule out paradoxical embolus. COMPARISON: There are no prior studies available for comparison. TECHNIQUE: Multiple real-time, color flow and Doppler tracings of both lower extremities were obtained. FINDINGS: The common femoral, femoral, profunda femoral and popliteal veins all demonstrate normal compressibility, augmentation with compression and phasic response with respiration. The posterior tibial and peroneal veins demonstrate normal compressibility and augmentation with compression. IMPRESSION: NO EVIDENCE FOR DEEP VENOUS THROMBOSIS.
--- NOTE | 2018-06-03 22:04 | PN ---
Progress Note - Progress Note Date of Service: 06/03/18 Note: will call clerk radiology called to confirm CT finding of new infarct L anterior basal ganglia seen on MRI earlier today.
--- NOTE | 2018-06-03 22:16 | PN ---
Hospitalist Progress Note Date of Service: 06/03/[address] finding to Dr Altamirano. States at this point patient can go on asa. No hemmorhage seen on ct tonight. However Mri does show petechial hemorrhage. Will start ASA for now. Neuro states ok with bid heparin sub-q for DVT prevention. Will hold this until am. Will transfer out of ICU tonight neuro states this is acceptable.
[2018-06-04] MEDS: cefTRIAXone VIAL(*) 1,000 MG in NS 0.9% 50 ML* 50 ML IVPB SCH (01:53)
--- NOTE | 2018-06-04 02:27 | CONS ---
CC: Dr. Chambers; Dr. Krishnamurthy, [place], phone number [phone]; Dr. Ortega, [place], phone number [phone] * CARDIOLOGY CONSULTATION NOTE: DATE OF CONSULT: 06/03/18 REASON FOR CONSULTATION: Elevated troponins. HISTORY OF PRESENT ILLNESS: Mr. Fletcher was examined in the presence of his and daughter. He is an 82-year-old gentleman who resides in [place] and his automotive porter is Dr. Ortega. The patient has had presented yesterday after his noted that his face was drooping and when she tried to get him up, he could not walk. He came right to the emergency room and underwent TPA for an acute stroke, see Neurology notes and H and P for full details. Overnight, the patient's troponins have been rising progressively and at 08:30 this morning, it had increased to 0.49. The patient denies any chest pain at any point in time. Events that preceded the stroke included a long drive from [place] to the [place], [place] area that they did over 3 days. His states her did the driving and typically would not stop unless he absolutely had to use a restroom. In [place], he had an episode where he was quite short of breath for no apparent reason. They then drove earlier this week from [place], [place] to [place]. The night prior to the stroke, i.e., Friday night, he got up in the middle of the night to urinate and was very winded. Yesterday, while driving in the ambulance to the hospital, he was winded and oxygen did not help. The patient and his denied any swollen legs or painful legs with traveling and no orthopnea or PND. The patient has a past cardiac history of aortic valve replacement 3 years ago and although he knows the results of his heart catheterization, he is unable to tell me them because of his aphasia and his family does not know. PAST MEDICAL HISTORY: The patient has a past medical history of: 1. Aortic stenosis with aortic valve replacement 3 years ago (bovine valve). 2. Syncope with dancing prior to aortic valve replacement. 3. Hypertension. 4. Dyslipidemia. MEDICATIONS: For outpatient medications, see admission note, history and physical. Current inpatient medications include: 1. Tylenol p.r.n. 2. Ceftriaxone. 3. Zofran p.r.n. nausea. 4. Potassium. He received alteplase in the emergency department last night as well as magnesium and normal saline. ALLERGIES: Include PENICILLIN and LISINOPRIL. SOCIAL HISTORY: The patient smoked distantly. No recent alcohol use. He is active, lives with his . FAMILY HISTORY: Significant that his mother had a stroke and father had a heart attack. REVIEW OF SYSTEMS: Not able to be obtained from the patient, but as per history of present illness, he has had a recent long drive, recent episodes of shortness of breath without obvious reasons. Negative for recent fevers, chills , sweats. Negative for pain or swelling in the lower extremities. Positive for exertional dyspnea with stares since arriving in the [place]. Negative for chest pain, pressure, heaviness, orthopnea, or PND. No recent changes in appetite, bowel or bladder habits. All other 14-point review of systems was negative. PHYSICAL EXAMINATION: On exam, the patient is 6 feet 3 inches, weighs 185 pounds with a BMI of 23. Vital signs on arrival to the emergency department, blood pressure 130/83 and pulse was 88. Currently, blood pressure 144/59, pulse is 76 to 88, temperature 99.8, oxygen saturation on room air is 97%, and respiratory rates are up to 23 respirations per minute. General Appearance: Lean, tall elderly gentleman, lying in bed at about 30 degrees, oxygen prongs on , appears comfortable. Psychologically, pleasant and cooperative and able to follow commands. He is hard of hearing, but he can answer basic questions, yes or no, but is unable to answer complex questions and things that require full sentences. HEENT: Eyes are a bit asymmetrical with a bit of lid lag on the right. Mucous membranes were moist. Neck: Without appreciable increase in JVP. Carotid pulses are symmetrical without audible bruits. Breath sounds were clear with good effort. No wheezes, rales, or rhonchi. Chest and coronary : Well-healed midline sternotomy scar. S1, S2, regular. Very soft systolic murmur heard in the upper sternal border. Abdomen: Flat. Active bowel sounds, soft, nontender. No hepatomegaly. Lower extremities are symmetrical in size, warm with excellent dorsalis pedal pulses and palpable posterior tibial pulses that are symmetrical. DIAGNOSTIC STUDIES: A 12-lead ECG from 7:00 this morning shows normal sinus rhythm, 74 beats a minute, first degree AV block with normal intraventricular conduction times, corrected QT interval of 497 ms and PVCs, 2 in a 10-second strip. Monitor shows sinus rhythm in the 80s with frequent PVCs. The patient's echocardiogram done today showed mild left ventricular hypertrophy with an ejection fraction of 55% to 60%, septal dyssynchrony consistent with post valve surgery and otherwise normal wall motion. His bioprosthetic valve showed good function with a mean gradient of 9 mmHg, peak velocity across the aortic valve 2.1 m/sec and dimensionless index 0.56. He had mild mitral and mild tricuspid insufficiency. PA pressure was mildly elevated at 40 mmHg. Aortic diameter mildly dilated at 3.6 cm. LABORATORY DATA: Sodium 138, potassium 3.5, chloride 111, bicarb 19, BUN 22, creatinine 1.64, glucose 104. Magnesium 1.8. Troponin #1 0.07, #2 0.13, #3 0.32, #4 0.49, #5 0.79, #6 0.71. Lipids, total cholesterol 126, triglycerides 78, LDL cholesterol 78, HDL cholesterol 33. C-reactive protein 47 on arrival to the emergency department. ALT is 10, AST 15. Sed rate of 40. White count on arrival 12.6, white count today 9.6, hemoglobin 12, hematocrit 34, platelets 175. No D-dimer. Urinalysis was positive for protein, ketones, blood, nitrite negative, esterase negative. IMPRESSION: In summary, Sebastian Fletcher is an 82-year-old gentleman who presented with acute onset of right-sided weakness and MRI showing involving the left cerebellum, left caudate and basal ganglia regions suggesting cardioembolic mechanism. The patient additionally has elevated troponins and is 3 years out from a bioprosthetic aortic valve. He has had recent long periods of driving. I am most suspicious that the patient developed DVTs leading to pulmonary emboli , which would explain the intermittent shortness of breath and had a paradoxical embolus leading to both the stroke and mild elevation in troponins. The transthoracic echo is not an optimal test to rule in or out for patent foramen ovale or other areas that could lead to shunting. I recommended he undergo either a V/Q or CT angiogram, with his mild elevation in creatinine or leave it to the hospitalist to determine which test is optimal. I agree with Neurology that a transesophageal echo would also be of benefit, especially if none was ever done prior to his aortic valve replacement 3 years ago. The timing of the transesophageal echo, I do not think is critical and can be determined as per the neurologist and hospitalist based on optimal timing to minimize the risk of hypoperfusion from anesthesia. In the interim, we will get old records including cardiac catheterization, transesophageal echo's, office notes, and recent EKGs. Once the patient is felt to be okay for some blood pressure lowering, I would recommend a low dose of beta-taty for PVCs and heart rate to help protect the myocardium from damage, whatever the mechanism. Additional possibilities for cardioembolic stroke would include asymptomatic paroxysmal AFib and this too could lead to elevated troponins as well as a stroke and if the workup is negative for intracardiac shunting, then I would recommend an implantable event monitor to look for the possibility of paroxysmal AFib for which he is at risk based on his age and prior open heart surgery and history of hypertension. Additional recommendations will be made pending the results of his imaging to look for the possibility of pulmonary emboli as well as transesophageal echo and his old cardiac records will be of assistance as well. [id number]/[facility] #: [id number] EFRAIN
[2018-06-04 05:55] LABS: ABS Basophils 0.1 10^3/ul (0-0.2); ABS Eosinophils 0 10^3/ul (0-0.6); ABS Lymphocytes 1.8 10^3/ul (1.0-4.8); ABS Monocytes 1.4 10^3/ul (0-0.8); ABS Neutrophils 7.7 10^3/ul (1.5-7.7); ABS Nucleated RBC 0 10^3/ul; Eosinophil % 0.4 % (0-6); Hematocrit 34 % (42-52); Hemoglobin 12.1 g/dl (14.0-18.0); Lymphocyte % 16.1 % (25-47); Mean Corpuscular HGB Conc 35 g/dl (31-36); Mean Corpuscular Hemoglobin 32 pg (27-31); Mean Corpuscular Volume 92 fL (80-94); Mean Platelet Volume 7.4 um3 (7.4-10.4); Nucleated Red Blood Cells % 0; Platelet Count 192 10^3/ul (150-450); Red Blood Count 3.75 10^6/ul (4.00-5.40); Red Cell Distribution Width 12 % (10.5-15)
--- NOTE | 2018-06-04 07:33 | RAD ---
INDICATION: CVA with TPA administration COMPARISON: CT brain June 02, 2018 TECHNIQUE: Noncontrast axial source images were acquired from the skull base to the vertex. FINDINGS: Ventricles/sulci: The ventricles and cisterns are normal in size and configuration for age. Brain parenchyma: There is a subacute infarct involving the left caudate head, anterior insular cortex and anterior limb of the internal capsule. There is associated localized mass effect. There is no other focal parenchymal finding, evidence of intracranial mass, or intracranial mass effect. Intracranial hemorrhage:None. Extra-axial spaces: There are no abnormal extra axial fluid collections or evidence of extra-axial mass. Calvarium: There is no calvarial fracture or other calvarial abnormality. Scalp: There is no evidence of scalp or extracalvarial soft tissue abnormality. Paranasal sinuses/mastoid: The paranasal sinuses and mastoid air cells are clear. Other: None. IMPRESSION: Nonhemorrhagic, some acute infarct centered at the lower left caudate lobe /anterior left insular cortex.
--- NOTE | 2018-06-04 09:45 | RAD ---
HISTORY: Recent travel, dyspnea COMPARISON: Chest x-ray dated June 04, 2018 TECHNIQUE: Pulmonary ventilation/perfusion scintigraphy was performed with dynamic cine images and multiple planar images. DOSE: Ventilation: Xenon-133 8.85 millicuries, administered at 9:06 AM on June 04, 2018 Perfusion: Technetium 99m microaggregated albumin 6.2 millicuries, administered at 9:10 AM on June 04, 2018 FINDINGS: Ventilation: Homogeneous Perfusion: No moderate or large segmental perfusion defects. There are questionable nonsegmental defects of the left upper lung on the oblique views. IMPRESSION: LOW PROBABILITY VQ SCAN
--- NOTE | 2018-06-04 09:49 | RAD ---
HISTORY: VQ, recent travel, chest pain, shortness of breath COMPARISONS: June 02, 2018 VIEWS: 3: Frontal and lateral views of the chest. FINDINGS: CARDIOMEDIASTINAL SILHOUETTE: The cardiomediastinal silhouette is normal. A prosthetic heart valve is noted. RUPERT: The rupert are normal. PLEURA: The costophrenic angles are sharp. No pleural abnormalities are noted. LUNG PARENCHYMA: The lungs are clear. ABDOMEN: The upper abdomen is clear. There is no subphrenic gas. BONES AND SOFT TISSUES: The patient is status post median sternotomy. OTHER: None. IMPRESSION: NO ACTIVE CARDIOPULMONARY DISEASE.
[2018-06-04] MEDS: Aspirin EC TAB* 81 MG TAB.EC PO SCH (11:27)
[2018-06-04] MEDS: Acetaminophen TAB* 325 MG PO PRN (11:27)
[2018-06-04] MEDS: Carvedilol TAB* 3.125 MG PO SCH ×2 (12:45→20:58)
--- NOTE | 2018-06-04 14:06 | PN ---
Subjective Date of Service: 06/04/18 Interval History: HOSPITALIST PROGRESS NOTE Patient seen and examined at bedside. Care reviewed and d/w Jovani Garcia RN. He feels well today, offers no complaints. Family History: Unchanged from Admission Social History: Unchanged from Admission Past Medical History: Unchanged from Admission Objective Active Medications: Acetaminophen (Tylenol Tab*) 650 mg PO Q6H PRN PRN Reason: FEVER/PAIN Last Admin: 06/04/18 11:27 Dose: 650 mg Aspirin (Aspirin Ec Tab*) 81 mg PO DAILY [facility] Last Admin: 06/04/18 11:27 Dose: 81 mg Carvedilol (Coreg Tab*) 3.125 mg PO BID [facility] Last Admin: 06/04/18 12:45 Dose: 3.125 mg Ceftriaxone Sodium 1,000 mg/ (Sodium Chloride) 50 mls @ 200 mls/hr IVPB Q24H [facility] Last Admin: 06/04/18 01:53 Dose: 200 mls/hr Ondansetron HCl (Zofran Inj*) 4 mg IV Q6H PRN PRN Reason: NAUSEA Vital Signs - 8 hr 06/04/18 06/04/18 06/04/18 07:55 08:00 08:01 Temperature 98.0 F 98.0 F Pulse Rate 40 40 Respiratory 16 18 16 Rate Blood Pressure 147/71 147/71 (mmHg) O2 Sat by Pulse 99 99 Oximetry 06/04/18 06/04/18 06/04/18 11:40 12:39 12:45 Temperature 99.6 F Pulse Rate 76 94 94 Respiratory 16 18 Rate Blood Pressure 141/66 123/50 123/50 (mmHg) O2 Sat by Pulse 98 95 94 Oximetry Oxygen Devices in Use Now: None Appearance: Pleasant elderly gentleman lying in bed in [facility]. Eyes: No Scleral Icterus Ears/Nose/Mouth/Throat: Mucous Membranes Moist Neck: Trachea Midline Respiratory: Symmetrical Chest Expansion and Respiratory Effort, Clear to Auscultation Cardiovascular: RRR - Normal S1 and S2 Neurological: Alert and Oriented x 3, NL Muscle Strength and Tone Result Diagrams: 06/04/18 05:38 06/04/18 05:38 Assess/Plan/Problems-Billing Assessment: Mr Fletcher is an 82yo M with PMH of HTN, HLD, aortic valve disease, who presented to ED with c/o slurred speech, right hemiparesis, found to have an ischemic CVA. - Patient Problems (1) Ischemic cerebrovascular accident (CVA) Comment: - Initial CT brain was negative and patient received tPA with good response. - MRI brain showed multiple territories CVA including left basal ganglia and left inferior cerebellum, suggestive of embolic etiology. - Left caudate also shows some petechial hemorrhage - repeat CT brain was negative for hemorrhage. - D/w Neurology - recommended low dose Aspirin and Plavix, AFIA and anticoagulation if embolic source found. - Continue to monitor with neurocheks. - PT/OT consults. - PMRU referral. (2) HTN (hypertension) Comment: - Resume Carvedilol today. (3) Elevated troponin Comment: - Denies chest pain, EKG shows no ischemic changes (only PVCs), but troponin continues to trend up. - Echo showed no wall motion abnormalities. - Cardiology consult appreciated. - LE doppler negative for DVT and V/Q scan low risk for PE. (4) HLD (hyperlipidemia) Comment: - LDL is 78 - start Atorvastatin. (5) Fever Comment: - Etiology unclear at this time - follow cultures and continue Ceftriaxone empirically for now. If no growth by tomorrow will d/c it. (6) DVT prophylaxis Comment: - SCDs. (7) Full code status Status and Disposition: Inpatient. Continue to monitor in ICU.
[2018-06-04] MEDS: Atorvastatin* 20 MG TAB PO SCH (16:02)
[2018-06-04] MEDS: Clopidogrel TAB* 75 MG PO SCH (16:02)
[2018-06-05] MEDS: cefTRIAXone VIAL(*) 1,000 MG in NS 0.9% 50 ML* 50 ML IVPB SCH (01:19)
--- NOTE | 2018-06-05 01:47 | PN ---
NEUROLOGY PROGRESS REPORT: DATE OF SERVICE: 06/04/18 DATE OF ADMISSION: 06/02/18 PRIMARY PROVIDER: Kalli Chambers MD CHIEF COMPLAINT: Mild right sided weakness and word finding difficulty. SUBJECTIVE: The patient has been transferred out of the ICU. Repeat CT head did not show any hemorrhagic transformation. He is status post tPA day 2. His stated that his language has improved, but he continues to have significant deficits. He still has mild right-sided weakness. Further history was obtained. The patient and spouse live in [place]. The patient is here to visit his daughter and needs to get back to [place] as soon as possible. They drove to [place]. I reviewed cardiology's consultation and appreciate their input. I agree that paradoxical emboli is a possibility. I also reviewed the patient's Fitbit data. Apparently, over the last week the patient's heart rate is between 120-160 mostly at 6-8 a.m. in the morning. This is abnormal from previous weeks. The patient does have history of obstructive sleep apnea and snores at night and I wonder if he goes into AFib with RVR that spontaneously resolves after a few minutes to hours. The patient is tolerating both aspirin and Plavix as well as atorvastatin. REVIEW OF SYSTEMS: He denied any chest pain, shortness of breath, or palpitations. He denied any headaches, visual disturbance, or swallowing difficulties. MEDICATIONS: 1. Acetaminophen 650 mg p.o. q.6 hours p.r.n. for fevers or pain. 2. Aspirin 81 mg daily. 3. Atorvastatin 20 mg p.o. daily. 4. Coreg 3.125 mg p.o. twice daily. 5. Rocephin 1000 mg every 24 hours. 6. Clopidogrel 75 mg p.o. daily. 7. Ondansetron 4 mg IV q.6 hours p.r.n. for nausea. PHYSICAL EXAMINATION: Vitals: Temperature of 99.6, heart rate of 94, respiratory rate of 18, oxygen saturation 94% on room air, blood pressure of 123 /50. General: Well-nourished, well-developed man, in no acute distress. He is cooperative. Head: Atraumatic, normocephalic without any obvious abnormalities. Conjunctivae/Corneas are clear. No scleral icterus. Neck is supple and symmetrical with no carotid bruit. No lymphadenopathy. Lungs are clear to auscultation bilaterally. Non-labored breathing. Cardiovascular: Regular rate and rhythm. Normal S1, S2 with radial pulses are palpable. Extremities: Normal range without any cyanosis or edema. Skin: No skin lesions or laceration. Psych: Affect is broad and normal mood. He is easy to establish rapport, although he has some degree of aphasia. Neurological Examination: Awake, alert, oriented to person, place, time and general circumstance. He has no dysarthria, but does have expressive aphasia. Pupils are midrange and reactive to light. Normal consensual response. Extraocular muscles are intact. He has no ptosis. He has got no conjugate or asymmetrical nystagmus. He had mild loss of nasolabial fall on the right, but no significant facial asymmetry. He is able to hear throughout the history process and symmetrical palate elevation. Normal strength against shoulder shrug resistance. Tongue is symmetrical and midline with no atrophy or fasciculation. Motor Examination: 5/5 in the upper and lower extremity except for 4/5 on the shoulder abduction on the right. He has mild pronator drift on the right otherwise, no fasciculation, no tremors. Reflexes 2+ on the right, 1 + on the left with 2 at the ankle on the right and 1 at the left. He has flexor plantar response bilaterally. Sensation to light touch is intact throughout. Coordination: Normal [id number] and reduced alternating movement on the right. Gait and station were assessed and he has mild wide based gait with no ataxia. DIAGNOSTIC STUDIES/LAB DATA: White count of 11,000, hemoglobin of 12.1, hematocrit of 34, platelet of 192. Sodium 138, potassium of 3.8, chloride of 109, anion gap of 8, creatinine of 1.53. Her troponin peaked at 0.79, LDL of 78 , HDL of 32, total cholesterol of 126. Imaging Studies: Back to the brain CT of the head completed on 06/02/18 that showed no acute intracranial abnormality. CT of the head completed on 06/02/18 showed no large vessel occlusion and no internal carotid artery stenosis. Multiple EKGs and the patient has been on telemetry that showed sinus rhythm with no evidence of atrial fibrillation. Transthoracic echo was completed on and reportedly showed mild concentric left ventricular hypertrophy. A global left ventricular wall motion and contractility are within normal limits. Estimated ejection fraction 50 to 60%, left atrial chamber size is normal. Conclusion, mild concentric left ventricular hypertrophy is observed. Global left ventricle wall motion and contractility within normal. The patient had a venous Doppler study of the lower extremity and there was no evidence for deep venous thrombosis. This was reported on 06/03/18. He had a repeat CT head after 24 hours post tPA that showed non-hemorrhagic acute infarction centered in the lower left quadrate lobe, anterior left insular cortex as well as the left cerebellum. He had an MRI brain completed on 06/03/18 that showed restricted diffusion and elevated T2 flare signal within the left anterior basal ganglia and their susceptibility artifact suggestive of petechial hemorrhagic without masoud parenchymal hematoma. There is second focus of non- hemorrhagic subacute infarct within the left inferior cerebellum. There is multiple vascular territories involvement suggesting an embolic phenomenon. The patient had a lung scan VQ for concerns that he may have a PE, especially since he has been immobile driving from [place] and impression reported low probability VQ scan. 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 He was found to have multifocal acute ischemic infarction. He is status post a tPA with a 4.5 hour window. He is doing well, but continues to have neurological deficits of mild right hemiparesis and aphasia. A repeat CT head 24 hours post tPA showed no evidence of hemorrhagic transformation. The patient lives in [place] and would prefer to have further physical therapy services in that area. 1. 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 I agree that possible atrial or ventricular thrombus versus atrial fibrillation is highly differential. Interestingly, his Fitbit did capture tachycardia, mostly between 6-8 a.m. every morning for the last week. We reviewed his heart rate prior to within this last week and it did not show any evidence of tachycardia. Therefore, I wonder if the patient is in and out of atrial fibrillation early in the morning that we have not captured on tele while he has been admitted here. The Fitbit has not shown any significant tachycardia over the last 48 hours though. He does have history of obstructive sleep apnea and does not use a CPAP, which increases the risk for cardiac arrhythmias. I do recommend transesophageal echo at this point. He can have this done during this hospitalization, since if it is positive, we will need to change his antiplatelet therapy to anticoagulation therapy. However, in the meantime, we can continue dual antiplatelet therapy with aspirin 81 mg daily and Plavix 75 mg daily. Continue atorvastatin 20 mg daily. Stroke education was discussed with patient and his spouse at bedside today. They both verbalized understanding. The patient will need PT/OT services as well as [employer] services as an outpatient. I do not think he would be a candidate for inpatient therapy as he is ambulating and doing extremely well. But still has neurological deficits. 2. Hypertension. He was restarted on Coreg. It is reasonable to maintain normotensive range at this point. 3. Elevated troponin - this has resolved. This is probably related to either his kidney disease versus acute stroke probably the latter. The patient denied any chest pain. 4. VTE prophylaxis with heparin 5000 units subcutaneously every 12 hours. I will continue to follow. TIME SPENT: I spent a total of 35 minutes of which greater than 50% was spent directly reviewing the medical chart, obtaining history, examining the patient, and discussing the treatment plan and prognosis with the patient and his spouse. [id number]/[facility] #: [id number] EFRAIN
[2018-06-05] MEDS: Heparin VIAL(*) 5000 UNITS/ML VIAL (FIVE THOUSAND) SUBCUT SCH ×2 (09:13→21:14)
[2018-06-05] MEDS ORDERED: Midazolam* 1 MG/ML 10 ML VIAL (10 MG) ONE (09:55)
[2018-06-05] MEDS ORDERED: Naloxone* 0.4 MG/ML 1 ML VIAL ONE (09:56)
[2018-06-05] MEDS ORDERED: Flumazenil* 0.1 MG/ML 5 ML MDV ONE (09:56)
[2018-06-05] MEDS ORDERED: fentaNYL* 50 MCG/ML 2 ML VIAL (100 MCG VIAL) ONE (09:56)
[2018-06-05] MEDS ORDERED: Lidocaine 2% VISCOUS* 15 ML UDC ONE (09:57)
--- NOTE | 2018-06-05 11:35 | TEE ---
Patient: NATALIE MCMILLAN [facility] Rec#: [id number] : 1935 Date: 06/05/2018 Age: 82y Height: 190.5 cm / 75.0 in Weight: 86.18 kg / 189.9 lbs Sex: M BSA: 2.15 Room#: [facility] Type: Inpatient Referring: Kalli Dang MD Performing: Ajit Cobian MD Reading: Ajit Cobian MD Solution Analyst: Vika Chery JEROD Nurse: Gisele Lei RN Transesophageal Echocardiogram Indication: CVA BP: 148/77 HR: 81 Rhythm: NSR with PVCs Findings History: Bovine AVR 2014,HTN,HLD,former smoker,admitted with CVA. Technical Comments: The study quality is good. Completed at 1105. Left Ventricle: The left ventricular chamber size is normal. There is a prominent septal knuckle. The estimated ejection fraction is 60-65%. Post surgical hypokinesis of the interventricular septum is observed consistent with valve replacement. Left Atrium: The left atrial chamber size is normal. There is no thrombus visualized in the left atrial appendage. Right Ventricle: The right ventricular cavity size is normal. The right ventricular global systolic function is normal. Right Atrium: The right atrial cavity size is normal. There were late bubbles seen in the left atrium.c/w a intrapulmonary shunt. Aortic Valve: A bovine bio-prosthetic aortic valve is present. The prosthetic aortic valve leaflets are normal. Struts are present. The bio-prosthetic aortic valve appears to be functioning normally. Mitral Valve: There is prolapse of the anterior leaflet of the mitral valve. There is prolapse of the posterior leaflet of the mitral valve. There is mild to moderate mitral regurgitation. The mitral regurgitant jet is centrally directed. There are also multiple smaller jets noted. There is no evidence of mitral stenosis. Tricuspid Valve: The tricuspid valve leaflets are normal. There is mild tricuspid regurgitation. There is no tricuspid stenosis. Pulmonic Valve: The pulmonic valve appears normal. There is a trace pulmonic regurgitation. There is no pulmonic stenosis. Pericardium: The pericardium appears normal. Aorta: There is no dilatation of the ascending aorta. The aortic arch is not well visualized. There is mild dilatation of the aortic root. There is plaque visualized in the descending aorta.Minimal plaque. Pulmonary Artery: The main pulmonary artery appears normal. Venous: The bicaval view was obtained and appears normal. The pulmonary veins appear normal in size. 3 out of 4 seen. The flow pattern of the pulmonary veins appear normal. AFIA Procedures: History and physical as well as labs were reviewed. The patient was in a fasting state. Risks and benefits of the procedure, including alternatives, were discussed and written informed consent was obtained. The patient and/or their health care district representative expressed understanding of the procedure, risks and benefits. Baseline and continuous monitoring of blood pressure, heart rate, pulse oximetry and heart rhythm was performed throughout the procedure. The appropriate time-out procedure was performed as per [facility] protocol. The patient was placed in the left lateral decubitus position. The patient's posterior pharynx was anesthetized with 20ml of 2% viscous lidocaine. The patient received IV Midazolam with a total dose of 4mg. The patient received IV Fentanyl with a total dose of 25mcg. An oral bite block was inserted for protection of oral dentition. The multiplane transesophageal echocardiogram probe was inserted through the posterior oropharynx and advanced into the esophagus without difficulty. Multiple 2D images were obtained of the heart and its related structures. Color flow Doppler was used for evaluation. Spectral Doppler was also used. The atrial septum was interrogated with color flow Doppler. At the conclusion of the procedure the probe was removed with continuous suction without complications. The patient tolerated the procedure with no apparent complications. Contrast: Normal saline was used as contrast for the bubble study. Intravenous contrast was used to help determine presence of intracardiac shunting. Conclusions The estimated ejection fraction is 60-65%. There is no thrombus visualized in the left atrial appendage. There were late bubbles seen in the left atrium c/w a intrapulmonary shunt. No color flow or 2d evidence of a PFO. A bovine bio-prosthetic aortic valve is present. The bio-prosthetic aortic valve appears to be functioning normally. There is mild prolapse of the anterior leaflet of the mitral valve. There is mild prolapse of the posterior leaflet of the mitral valve. There is a mitral regurgitant jet centrally directed. There are also multiple smaller jets noted. There is mild to moderate mitral regurgitation overall. There is mild tricuspid regurgitation. There is mild dilatation of the aortic root. There is plaque visualized in the descending aorta; Minimal plaque. No obvious cardiac source of embolism. Similar to the TTE of 7.24.18. Measurements Name Value Normal Range Aortic Annulus 2.2 cm (1.4 - 2.6) Ao root diameter (2D) 3.8 cm (2.1 - 3.5) Ascending Ao 3.4 cm (2.1 - 3.4)
[2018-06-05] MEDS: Carvedilol TAB* 3.125 MG PO SCH ×2 (11:52→21:14)
[2018-06-05] MEDS: Clopidogrel TAB* 75 MG PO SCH (11:52)
[2018-06-05] MEDS: Aspirin EC TAB* 81 MG TAB.EC PO SCH (11:52)
--- NOTE | 2018-06-05 12:15 | PN ---
Subjective Date of Service: 06/05/18 Interval History: He is slightly drowsy this morning but responds appropriately. He just had the AFIA done which was unremarkable and showed no left appendage thrombus and atrial valve appears normal. He wants to go home. He still has word finding difficulty but no significant weakness. NIHSS today is 1 due to aphasia. ROS: Denied CP, SOB, or palpitations. Family History: Unchanged from Admission Social History: Unchanged from Admission Past Medical History: Unchanged from Admission Objective Active Medications: Acetaminophen (Tylenol Tab*) 650 mg PO Q6H PRN PRN Reason: FEVER/PAIN Last Admin: 06/04/18 11:27 Dose: 650 mg Aspirin (Aspirin Ec Tab*) 81 mg PO DAILY [facility] Last Admin: 06/05/18 11:52 Dose: 81 mg Atorvastatin Calcium (Lipitor*) 20 mg PO 1700 [facility] Last Admin: 06/04/18 16:02 Dose: 20 mg Carvedilol (Coreg Tab*) 3.125 mg PO BID [facility] Last Admin: 06/05/18 11:52 Dose: 3.125 mg Clopidogrel Bisulfate (Plavix Tab*) 75 mg PO DAILY [facility] Last Admin: 06/05/18 11:52 Dose: 75 mg Heparin Sodium (Porcine) (Heparin Vial(*)) 5,000 units SUBCUT Q12H [facility] Last Admin: 06/05/18 09:13 Dose: 5,000 units Ceftriaxone Sodium 1,000 mg/ (Sodium Chloride) 50 mls @ 200 mls/hr IVPB Q24H [facility] Last Admin: 06/05/18 01:19 Dose: 200 mls/hr Ondansetron HCl (Zofran Inj*) 4 mg IV Q6H PRN PRN Reason: NAUSEA Vital Signs 06/04/18 06/04/18 06/04/18 12:39 12:45 15:15 Temperature 97.8 F Pulse Rate 94 94 74 Respiratory 18 24 Rate Blood Pressure 123/50 123/50 123/68 (mmHg) O2 Sat by Pulse 95 94 98 Oximetry 06/04/18 06/04/18 06/04/18 19:15 19:25 23:20 Temperature 97.4 F 100.6 F Pulse Rate 81 87 Respiratory 20 24 16 Rate Blood Pressure 143/69 127/64 (mmHg) O2 Sat by Pulse 98 95 Oximetry 06/04/18 06/04/18 06/05/18 23:22 23:25 03:33 Temperature 98.5 F 98.5 F 98.9 F Pulse Rate 72 Respiratory 14 Rate Blood Pressure 141/67 (mmHg) O2 Sat by Pulse 95 Oximetry 06/05/18 07:34 Temperature 98.2 F Pulse Rate 67 Respiratory 22 Rate Blood Pressure 148/77 (mmHg) O2 Sat by Pulse 96 Oximetry Oxygen Devices in Use Now: None Neurology Exam: General: Well nourished healthy appearing man in no acute distress. HEENT: Normocephelic/atraumstic, sclera anicteric Neck: Supple Chest: Clear to auscultation bilaterally Cardiovascular: Regular rate and rhythm without murmurs, rubs, gallops Extremities: No clubbing, cyanosis, or edema Neurological Findings: Awake, Alert, Oriented x3. He has mild aphasia with dysfluent speech but is able to comprehend appropriately. Cranial Nerve: PEERL, EOM intact, VFF, no nystagmus, face symmetric bilaterally , facial sensation intact Motor: s/s throughout, proximal and distal extremities x4 tone/bulk normal Sensation: intact to LT/PP bilaterally upper and lower extremities Deep Tendon Reflex: 2+ on right and 1+ on left. Finger to nose, rapid alternating movements intact without tremor, no dysdiadochokinesia Gait: Mild wide based gait with no ataxia. He has been ambulating to go to the restroom without assistance. Result Diagrams: 06/04/18 05:38 06/04/18 05:38 Assessment/Plan Assessment and Recommendations: 1. Mr. 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 He is s/p IV tPA is doing fairly well. He is tolerating both DAPT with aspirin 81 mg and Plavix [address] head without contrast 24 hours post IV tPA showed no evidence of hemorrhage. He had a AFIA that showed no evidence of an atrial thrombus. Next step would be to continue the DAPT for 30 days, then he should be back on his aspirin dose. Also , he will need an implantable loop recorder which can be done as an outpatient in [place], where he resides. PT/OT cleared the patient as he is independent and will not be needing in-patient services. He will need follow-up with a maintenance worker as outpatient as well as a neurologist. he can be discharged today. I informed the patient that he should NOT be driving until cleared by a neurologist in the outpatient setting in 2-3 weeks. Mrs. Fletcher stated that friends will be coming up to help them drive back home to [place] next week. I will sign off.
--- NOTE | 2018-06-05 16:50 | PN ---
Subjective Date of Service: 06/05/18 Interval History: HOSPITALIST PROGRESS NOTE Patient seen and examined at bedside. Care reviewed and d/w Jovani Garcia. Evaluated earlier, feeling well after AFIA, anxious for discharge. Later on started to c/o dyspnea, chills, and developed low grade temperature, so will cancel discharge. Family History: Unchanged from Admission Social History: Unchanged from Admission Past Medical History: Unchanged from Admission Objective Active Medications: Acetaminophen (Tylenol Tab*) 650 mg PO Q6H PRN PRN Reason: FEVER/PAIN Last Admin: 06/04/18 11:27 Dose: 650 mg Aspirin (Aspirin Ec Tab*) 81 mg PO DAILY [facility] Last Admin: 06/05/18 11:52 Dose: 81 mg Atorvastatin Calcium (Lipitor*) 20 mg PO 1700 [facility] Last Admin: 06/04/18 16:02 Dose: 20 mg Carvedilol (Coreg Tab*) 3.125 mg PO BID [facility] Last Admin: 06/05/18 11:52 Dose: 3.125 mg Clopidogrel Bisulfate (Plavix Tab*) 75 mg PO DAILY [facility] Last Admin: 06/05/18 11:52 Dose: 75 mg Heparin Sodium (Porcine) (Heparin Vial(*)) 5,000 units SUBCUT Q12H [facility] Last Admin: 06/05/18 09:13 Dose: 5,000 units Ceftriaxone Sodium 1,000 mg/ (Sodium Chloride) 50 mls @ 200 mls/hr IVPB Q24H [facility] Last Admin: 06/05/18 01:19 Dose: 200 mls/hr Ondansetron HCl (Zofran Inj*) 4 mg IV Q6H PRN PRN Reason: NAUSEA Vital Signs - 8 hr 06/05/18 12:00 Temperature 97.6 F Pulse Rate 63 Respiratory 20 Rate Blood Pressure 141/70 (mmHg) O2 Sat by Pulse 97 Oximetry Oxygen Devices in Use Now: None Appearance: Pleasant elderly male sitting up in bed in NAD. Eyes: No Scleral Icterus Ears/Nose/Mouth/Throat: Mucous Membranes Moist Neck: Trachea Midline Respiratory: Symmetrical Chest Expansion and Respiratory Effort, Clear to Auscultation Cardiovascular: NL Sounds; No Murmurs; No JVD, RRR Abdominal: NL Sounds; No Tenderness; No Distention Neurological: Alert and Oriented x 3, NL Muscle Strength and Tone Result Diagrams: 06/04/18 05:38 06/04/18 05:38 Assess/Plan/Problems-Billing Assessment and Plan: Mr Fletcher is an 82yo M with PMH of HTN, HLD, aortic valve disease, who presented to ED with c/o slurred speech, right hemiparesis, found to have an ischemic CVA. - Patient Problems (1) Fever Comment: - Etiology still unclear - repeat CxR, blood cultures and UA. - D/c Ceftriaxone and start Levaquin. (2) Ischemic cerebrovascular accident (CVA) Comment: - Initial CT brain was negative and patient received tPA with good response. - MRI brain showed multiple territories CVA including left basal ganglia and left inferior cerebellum, suggestive of embolic etiology. - Left caudate also shows some petechial hemorrhage - repeat CT brain was negative for hemorrhage. - D/w Neurology - recommended low dose Aspirin and Plavix x 30 days, then Aspirin only. - AFIA negative for embolic source - will need event monitor as outpatient. - D/c from PT/OT. (3) HTN (hypertension) Comment: - Continue Carvedilol and resume Losartan. (4) Elevated troponin Comment: - Denies chest pain, EKG shows no ischemic changes (only PVCs), but troponin continues to trend up. - Echo showed no wall motion abnormalities. - Cardiology consult appreciated. - LE doppler negative for DVT and V/Q scan low risk for PE. (5) HLD (hyperlipidemia) Comment: - LDL is 78 - continue Atorvastatin. (6) DVT prophylaxis Comment: - SCDs. (7) Full code status Status and Disposition: Inpatient. Hold discharge due to fever and chills.
--- NOTE | 2018-06-05 17:41 | RAD ---
INDICATION: Fever evaluate for pneumonia. COMPARISON: Comparison is made with a prior chest x-ray study from June 04, 2018. TECHNIQUE: Dual-energy PA and lateral views of the chest were obtained. FINDINGS: The patient is status post sternotomy. There appears to be a prosthetic aortic valve. The heart is within normal limits in size. There is elevation of the right hemidiaphragm. There is a faint patchy infiltrate in the left left lower lobe. No pleural effusion is seen. IMPRESSION: SMALL PATCHY LEFT LOWER LOBE INFILTRATE.
[2018-06-05] MEDS: Losartan TAB* 25 MG PO SCH (17:44)
[2018-06-05] MEDS: Acetaminophen TAB* 325 MG PO PRN (17:44)
[2018-06-05] MEDS: Atorvastatin* 20 MG TAB PO SCH (17:44)
[2018-06-05 18:08] LABS: ABS Basophils 0.1 10^3/ul (0-0.2); ABS Eosinophils 0.1 10^3/ul (0-0.6); ABS Neutrophils 10.7 10^3/ul (1.5-7.7); ABS Nucleated RBC 0 10^3/ul; Eosinophil % 0.7 % (0-6); Hematocrit 39 % (42-52); Hemoglobin 13.3 g/dl (14.0-18.0); Lymphocyte % 7.7 % (25-47); Mean Corpuscular HGB Conc 34 g/dl (31-36); Mean Corpuscular Hemoglobin 32 pg (27-31); Mean Corpuscular Volume 92 fL (80-94); Mean Platelet Volume 7.1 um3 (7.4-10.4); Nucleated Red Blood Cells % 0; Platelet Count 237 10^3/ul (150-450); Red Blood Count 4.21 10^6/ul (4.00-5.40); Red Cell Distribution Width 13 % (10.5-15); White Blood Count 12.8 10^3/ul (3.5-10.8)
[2018-06-05 18:27] LABS: EGFR Non-African American 47.2 (>60)
[2018-06-06] MEDS: cefTRIAXone VIAL(*) 1,000 MG in NS 0.9% 50 ML* 50 ML IVPB SCH (00:49)
[2018-06-06] MEDS ORDERED: Levofloxacin 500 MG IVPREMIX(* 500 MG/100 ML BAG IVPB SCH (03:00)
--- NOTE | 2018-06-06 05:39 | DS ---
CC: Dr. Krishnamurthy, [place], phone number [phone], fax number [phone]; his police commissioner Dr. Isabel villanueva, phone number [phone], fax number [phone] DISCHARGE SUMMARY: DATE OF ADMISSION: 06/02/18 DATE OF DISCHARGE: 06/05/18 DISCHARGE DIAGNOSIS: Ischemic cerebrovascular accident, suspect embolic in nature. SECONDARY DIAGNOSES: 1. Hypertension. 2. Hyperlipidemia. 3. Status post aortic valve replacement (bovine). MEDICATION LIST: 1. Glucosamine 1500 mg p.o. daily. 2. Lee-3 of 1000 mg p.o. daily. 3. Lutein 20 mg p.o. daily. 4. Acetaminophen 1000 mg p.o. q. 6 hours p.r.n. pain. 5. Cholecalciferol 1000 units p.o. daily. 6. Aspirin 81 mg p.o. daily. 7. Tramadol 50 mg p.o. q. 6 hours p.r.n. severe pain. 8. Gabapentin 300 mg p.o. at bedtime. 9. Cyanocobalamin 1000 mcg intramuscular every other month. 10. Carvedilol 6.25 mg p.o. b.i.d. New medications: 1. Clopidogrel 75 mg p.o. daily for 30 days. 2. Atorvastatin 20 mg p.o. daily. Losartan was discontinued for now. HOSPITAL COURSE: Mr. Fletcher is an 82-year-old male with a past medical history stated above that pre sents to the emergency room on 06/02/18 with complaints of right-sided weakness, facial droop, and di fficulty with speech. The patient is visiting family from [place] and his noted that around 180 0 on 06/02/18, he developed difficulty with speech. The patient was unable to stand up due to weakne ss on his right side. He was brought into the emergency room immediately, was evaluated and found to be a candidate for tPA that he received. He was then admitted to the Intensive Care Unit for furthe r evaluation and monitoring. CT of the brain without contrast showed no acute intracranial pathology and a CT of the head and neck showed atherosclerosis but no internal carotid artery stenosis by NASCET criteria. No aneurysm, vas cular malformation, occlusion, or stenosis of the visualized intracranial circulation. A transthorac ic echocardiogram showed mild concentric LVH, ejection fraction of 55 to 60% and the bovine bioprosth etic aortic valve appears to be functioning normally. The patient was seen in consultation by Neurology (Dr. Altamirano) and he reviewed the patient's MRI that had showed acute multifocal infarction involving the left cerebellum, the left skull base, and basal ganglia regions suggesting a cardioembolic mechanism rather than intracranial atherosclerotic disease . His recommendation was for a AFIA. He also noted that the CT had shown some petechial hemorrhage i n the left caudate and the patient had a followup CT that showed no hemorrhage. The patient also had elevation of his troponins. Initially, it was 0.07 and this was thought to be s econdary to his stroke. He had no complaints of chest pain, shortness of breath, but his troponin pe aked at 0.79. His EKG showed no ischemic changes and a Cardiology consultation was requested with Dr Akin Montoya. She was concerned that the patient could have developed DVT leading to pulmonary emboli c onsidering his recent trip from [place], but both the lower extremities Doppler and a V/Q scan were n egative. Her recommendation was if his PE workup was negative, to pursue a transesophageal echocardiogram that he underwent on 06/05/[address] Cobian. This study showed ejection fraction 60 to 65% with no thr ombus visualized in the left atrial appendage. There were late bubble seen in the left atrium compat ible with intrapulmonary shunt but no color flow evidence for PFO. The bovine bioprosthetic valve ap pears to be functioning normally. The patient was seen in followup by Neurology by Dr. Altamirano and his conclusion is that the patient has multifocal acute ischemic infarctions involving the left superior cerebellar and left middle cerebra l artery. He is status post IV tPA and doing fairly well. He is tolerating aspirin and Plavix daily and repeat CT without contrast 24 hours post IV tPA showed no evidence of hemorrhage. AFIA showed no evidence of an atrial thrombus. His recommendation was for the patient to continue dual anticoagula tion therapy for 30 days. Then, he should be back on his aspirin dose as before. He also will need an implantable loop recorder as an outpatient when he returns to [place] as we have a high suspicion for atrial fibrillation as the etiology for his CVA. The patient was seen in consultation by PT/OT a nd cleared as he is independent and does not require inpatient rehab. He would benefit from a speech therapy as an outpatient and also followup with his primary care, police commissioner and neurologist. He was felt to be stable for discharge today and as per Neurology recommendation, he should not be dr ray until cleared by a neurologist in the outpatient setting in 2-3 weeks. The patient's and daughter were present at the bedside on discharge and all their questions were answered. The patient's lipid profile show triglycerides 78, total cholesterol of 126, LDL 78, HDL was 32.8. T he patient was started on atorvastatin 20 mg p.o. daily. Regarding his elevated troponin, the patient will need to follow up with Cardiology when he is back [facility] to pursue a stress test. PHYSICAL EXAMINATION: Vital Signs: Temperature 97.6, heart rate is 63, respiratory rate is 20, oxyg en saturation 97% on room air, blood pressure is 141/70. General: The patient is a pleasant elderly male, sitting up in bed, not in acute distress. CVS: Normal S1, S2. Regular rate and rhythm. Ches t: Breath sounds present bilaterally with no added sounds. Extremities: No edema. Neuro: He is al ert and oriented x3 with normal speech, very minimal expressive aphasia and very minimal right hemip aresis. DIET: Heart healthy diet. ACTIVITY: As tolerated. DISPOSITION: To home. STATUS WHILE IN HOSPITALIZATION: Inpatient. Please keep in mind this is a summarized version of this patient's hospital stay. If you need more in formation, please feel free to call me at [phone] or please obtain the full medical records. TIME SPENT: Approximately, 50 minutes were spent to complete this discharge. [id number]/[facility] #: [id number]
[2018-06-06 06:09] LABS: Urine Appearance Clear; Urine Blood Negative (Negative); Urine Color Yellow; Urine Ketones Negative (Negative); Urine Protein Negative (Negative); Urine Specific Gravity 1.023 (1.010-1.030); Urine Urobilinogen Negative (Negative)
[2018-06-06] MEDS: Losartan TAB* 25 MG PO SCH (09:43)
[2018-06-06] MEDS: Clopidogrel TAB* 75 MG PO SCH (09:43)
[2018-06-06] MEDS: Aspirin EC TAB* 81 MG TAB.EC PO SCH (09:44)
[2018-06-06] MEDS: Heparin VIAL(*) 5000 UNITS/ML VIAL (FIVE THOUSAND) SUBCUT SCH (09:44)
[2018-06-06] MEDS: Carvedilol TAB* 3.125 MG PO SCH (09:44)
[2018-06-06 11:59] VITALS: BP 135/67
--- NOTE | 2018-06-07 03:50 | DS ---
CC: Dr. Krishnamurthy; Dr. Ortega DISCHARGE SUMMARY: ADDENDUM: PRIMARY CARE PROVIDER: Dr. Krishnamurthy. HOUSECLEANER FLOOR: Dr. Ortega. The plan was for the patient should be discharged home on 06/05/18; but prior to discharge, the patient started to feel poorly with shortness of breath and chills. Initially on the first day of admission, the patient spiked temperature of 101.7, but his chest x-ray, urinalysis, blood and urine culture yielded no growth. The patient had been started on ceftriaxone empirically, but this was later on discontinued. As the patient started to feel poorly again, his workup was repeated and his chest x-ray now revealed a small patchy left lower lobe infiltrate. I suspect this patient has pneumonia and I believe this is community-acquired as his symptoms started on the day of admission, although the infiltrate was only seen now. The patient was started on levofloxacin and he was feeling well and was anxious for discharge. So, levofloxacin 500 mg p.o. daily for 7 days was added to his medication list. [id number]/[facility] #: [id number] MTDD
== END 2018-06-06 13:22 | disposition home or self-care (01) | DRG 61 ==
LOC: ED 20:21 → ICU 23:21 → MEDTELE 06-04 01:25
PROVIDERS: ADMIT Hospitalist; ATTEND Internal Medicine
PROC: 3E03317 Introduction of Other Thrombolytic into Peripheral Vein, Percutaneous Approach (ICD-10-PCS; principal; 2018-06-02)
PROC: B24BZZ4 Ultrasonography of Heart with Aorta, Transesophageal (ICD-10-PCS; 2018-06-05)
DX: I63.412 Cerebral infarction due to embolism of left middle cerebral artery (principal); J18.9 Pneumonia, unspecified organism; G81.91 Hemiplegia, unspecified affecting right dominant side; R29.703 NIHSS score 3; E78.5 Hyperlipidemia, unspecified; R74.8 Abnormal levels of other serum enzymes; I48.0 Paroxysmal atrial fibrillation; R47.01 Aphasia; R29.810 Facial weakness; R50.9 Fever, unspecified; G47.33 Obstructive sleep apnea (adult) (pediatric); R00.0 Tachycardia, unspecified; I10 Essential (primary) hypertension; Z88.0 Allergy status to penicillin; Z82.49 Family history of ischemic heart disease and other diseases of the circulatory system; Z72.89 Other problems related to lifestyle; Z87.891 Personal history of nicotine dependence; Z88.1 Allergy status to other antibiotic agents; Z79.82 Long term (current) use of aspirin; Z95.3 Presence of xenogenic heart valve; Z88.8 Allergy status to other drugs, medicaments and biological substances; Z82.3 Family history of stroke
CPT/HCPCS: 36415; 70450; 70496; 70498; 70551; 71045; 71046; 78582; 80048; 80053; 80061; 81003; 81015; 83036; 83605; 83735; 84145; 84484; 85025; 85610; 85652; 85730; 86140; 86850; 86900; 86901; 87040; 87086; 87641; 93005; 93306; 93312; 93325; 93970; 99156; 99157; 99284; A9270-GY; A9540; A9558; G8978-GP-CH; G8979-GP-CH; G8980-GP-CH; G8987-GO-CH; G8988-GO-CH; G8989-GO-CH; J0696; J1644; J1956; J2250; J2310; J2997; J3010; J3475; J3480